=== PATIENT | male | born 1975 | race American Indian/Alaskan Native ===

== ENCOUNTER 2017-02-13 08:52 | Day surgery (SDC) | payer MEDICARE ==
[2017-02-13] MEDS ORDERED: ECOTRIN PO ONE (09:11)
[2017-02-13 09:58] LABS: Basophils % (Auto) 0.9 % (0.0-1.8); Chloride 98.6 mmol/L (98-107); Eosinophils % (Auto) 0.6 % (0.0-4.3); Hematocrit 43.2 % (35.5-45.6); Hemoglobin 14.7 gm/dl (11.8-15.2); Mean Corpuscular HGB Conc 34 % (32-34); Mean Corpuscular Hemoglobin 29 pg (28-32); Mean Corpuscular Volume 87 fl (84-94); Platelet Count 180 K/mm3 (140-440); Potassium 4.3 mmol/L (3.6-5.0); Red Cell Distribution Width 13.3 % (13.2-15.2); Sodium 139 mmol/L (137-145); White Blood Count 5.3 K/mm3 (4.5-11.0)
[2017-02-13 09:59] LABS: Anion Gap 15 mmol/L; BUN/Creatinine Ratio 11.42; Blood Urea Nitrogen 8 mg/dL (9-20); Carbon Dioxide 30 mmol/L (22-30); Glucose 228 mg/dL (75-100)
[2017-02-13] MEDS ORDERED: NACL 0.9% 500 ML 500 ML IV SCH (10:00)
[2017-02-13 10:10] LABS: INR 1.05 (0.87-1.13)
[2017-02-13] MEDS ORDERED: CALAN ONE (10:35)
[2017-02-13] MEDS ORDERED: HEPARIN/NS 5000 UNIT/500ML(CATH LAB) 1,000 ML IR ONE (10:35)
[2017-02-13] MEDS ORDERED: NITROGLYCERIN SYRINGE 3 ML ONE (10:35)
[2017-02-13] MEDS ORDERED: XYLOCAINE 2% INFILTRATI ONE (10:35)
[2017-02-13] MEDS ORDERED: HEPARIN 10,000 UNITS/10 ML ONE (10:35)
[2017-02-13] MEDS ORDERED: SUBLIMAZE ONE (10:37)
[2017-02-13] MEDS ORDERED: VERSED ONE (10:37)
[2017-02-13] MEDS ORDERED: APRESOLINE ONE (10:43)
--- NOTE | 2017-02-13 11:16 | Short Stay Summary ---
Short Stay Documentation Date of service: 02/13/17 - History H&P: obtained from office - Allergies and Medications Current Medications: Allergies No Known Allergies Allergy (Verified 03/31/13 10:08) Home Medications Medication Instructions Recorded Confirmed Last Taken Type ALPRAZolam [Xanax TAB] 1 mg PO BID 02/13/17 02/13/17 02/12/17 History Ergocalciferol [Vitamin D2] 1 cap PO QWEEK 02/13/17 02/13/17 02/12/17 History ISOSORBIDE MONOnitrate [Imdur ER] 30 mg PO DAILY #30 tab.er.24h 02/13/17 Unknown Rx Insulin Glargine,Hum.rec.anlog 35 units SQ QPM 02/13/17 02/13/17 02/12/17 History [Lantus Solostar] Insulin Lispro [HumaLOG VIAL] 5 - 11 units SQ AC 02/13/17 02/13/17 02/12/17 History Lisinopril [Zestril TAB] 10 mg PO QDAY 02/13/17 02/13/17 02/12/17 History Ranitidine HCl [Zantac 150 MG TAB] 150 mg PO PRN PRN 02/13/17 02/13/17 02/12/17 History Tizanidine HCl [Zanaflex] 4 mg PO Q8HR 02/13/17 02/13/17 02/12/17 History Active Medications Sodium Chloride (Nacl 0.9% 500 Ml) 500 mls @ 50 mls/hr IV DIRECT JENNIFER Stop: 02/13/17 19:59 Last Admin: 02/13/17 09:30 Dose: 50 mls/hr - Brief post op/procedure progress note Date of procedure: 02/13/17 Pre-op diagnosis: chest pain Post-op diagnosis: same Procedure: C - see cath report Anesthesia: local Estimated blood loss: none Condition: stable - Disposition Condition at discharge: Stable Disposition: DC-[id number] TO HOME OR SELFCARE - Discharge Diagnoses (1) Chest pain Status: Resolved Qualifiers: Chest pain type: C Ischemic chest pain type: I (2) Coronary artery vasospasm Status: Acute (3) Hypertension Status: Chronic Qualifiers: Hypertension type: H (4) Hyperlipidemia Status: Chronic Qualifiers: Hyperlipidemia type: H (5) Diabetes Status: Chronic Qualifiers: Diabetes mellitus type: D Diabetes mellitus complication status: D Diabetes mellitus complication detail: D Diabetic retinopathy severity: D Proliferative retinopathy type: P Diabetes mellitus macular edema: D Diabetes mellitus nursing home insulin use: D Laterality: L Chronic kidney disease stage: C Short Stay Discharge Plan Activity: advance as tolerated Diet: low fat, low cholesterol, low salt Wound: per your surgeon's advice Follow up with: VADIM AQUINO MD [Staff Physician] - 7 Days Prescriptions: ISOSORBIDE MONOnitrate [Imdur ER] 30 mg PO DAILY #30 tab.er.24h
--- NOTE | 2017-02-13 12:01 | Cardiac Catherization Report ---
REFERRING PHYSICIAN: Sukhjinder Montero MD INDICATION FOR PROCEDURE: The patient is a pleasant 41-year-old -[place] gentleman who presents with abnormal treadmill stress test, referred by Dr. Gomez and Dr. Montero, referred for abnormal exercise stress test only went [address] changes, referred for left heart catheterization. Other medical issues include hypertension, possible hyperthyroidism, hyperlipidemia, and type 1 diabetes. The patient is currently on OSMAN inhibition, metoprolol, blood pressure has been poorly controlled. PROCEDURE IN DETAIL: The patient was brought to the biological lab technician in a postabsorptive state, prepped and draped in sterile fashion. Sridhar's test in right hand was normal. A 2 mL of 2% lidocaine used to anesthetize the right wrist. A standard 6-[place] hydrophilic sheath was used to cannulate the right radial artery via modified Seldinger technique. All exchanges performed to exchange a J-tip guidewire. JL3.5 catheter used to engage the left main. No dampening or ventricularization. Cineangiography performed in all projections. JR4 catheter used to cross the aortic valve under fluoroscopic guidance. Left ventriculography performed in 30 [place] and 30 GREEK projections via hand injections. Catheter flushed. Manual pullback performed with continuous pressure monitoring. Catheter used to engage the right coronary. No dampening or ventricularization. Cineangiography performed in all projections. The patient had an intermediate 50-60% mid right coronary lesion. We gave 100 mcg of intracoronary nitroglycerin, this lesion resolved entirely. At this point, we end of the case and there were no complications. DATA: Aortic pressure is 140/80, LV pressure is 140. LVEP of 12 mmHg. Left ventriculography revealed normal systolic performance with estimated ejection fraction of 55-60%. No evidence of aortic stenosis. CORONARY ANATOMY: This is a right dominant system. Right coronary is a moderate-sized vessel, courses AV groove, distally bifurcates in the posterior and posterolateral branch. Initial angiography demonstrates a 50-60% stenosis in the distal right coronary. No other significant disease identified. A 100 mcg of intracoronary nitroglycerin given. This lesion resolved entirely. There is no significant disease in the right coronary. There is no significant atherosclerotic disease in the right coronary. Left main is without significant disease. It bifurcates left anterior and left circumflex. LAD is a moderate sized vessel, courses anterior intergroove, wraps around the apex, scattered luminal irregularities, but no significant disease in the LAD or diagonal system. Left circumflex is a moderate-sized vessel, courses AV groove. No significant disease in the left circumflex. CONCLUSIONS: 1. Minimal scattered luminal irregularities throughout this right dominant system. Mild vasospastic disease noted in the distal right coronary, 50-60% stenosis resolves with intracoronary nitroglycerin. No obstructive disease noted throughout the coronary tree. 2. Normal left ventricular systolic performance, estimated ejection fraction of 55-60%. 3. No evidence of aortic stenosis. At this point, we recommend adding Imdur, side effect profile discussed, and if this does not help, we would consider adding Ranexa and a calcium channel christy. We would also consider adding a statin therapy given endothelial dysfunction and vasospastic episodes. The patient will follow up with Dr. Gomez. Results of procedure explained to the patient and his son. All questions were addressed. JOB# [id number] SHAR/SUZETTE
[2017-02-13 14:13] VITALS: BP 137/84
== END 2017-02-13 13:40 | disposition home or self-care (01) ==
LOC: CATHLABREC 08:52
PROVIDERS: ATTEND Internal Medicine
DX: I20.1 Angina pectoris with documented spasm (principal); I10 Essential (primary) hypertension; F41.9 Anxiety disorder, unspecified; K21.9 Gastro-esophageal reflux disease without esophagitis; E78.2 Mixed hyperlipidemia; E10.9 Type 1 diabetes mellitus without complications; Z79.4 Long term (current) use of insulin; Z79.899 Other long term (current) drug therapy; Z82.49 Family history of ischemic heart disease and other diseases of the circulatory system
CPT/HCPCS: 36415; 80048; 82962; 85025; 85610; 85730; 93005; 93010; 93458; C1887; C1894; J0360; J1644; J2250; J3010; J7040; Q9967

== ENCOUNTER 2017-04-02 19:32 | Emergency (ER) | payer MEDICARE ==
[2017-04-02 19:43] VITALS: BP 142/101
[2017-04-02 20:03] LABS: Basophils % (Auto) 0.7 % (0.0-1.8); Eosinophils % (Auto) 0.4 % (0.0-4.3); Hematocrit 41.9 % (35.5-45.6); Hemoglobin 14.7 gm/dl (11.8-15.2); Mean Corpuscular HGB Conc 35 % (32-34); Mean Corpuscular Hemoglobin 31 pg (28-32); Mean Corpuscular Volume 87 fl (84-94); Platelet Count 219 K/mm3 (140-440); Red Cell Distribution Width 13.2 % (13.2-15.2); White Blood Count 5.9 K/mm3 (4.5-11.0)
[2017-04-02 20:22] LABS: Anion Gap 18 mmol/L; BUN/Creatinine Ratio 26; Blood Urea Nitrogen 18 mg/dL (9-20); Calcium 9.6 mg/dL (8.4-10.2); Carbon Dioxide 26 mmol/L (22-30); Chloride 91.7 mmol/L (98-107); Glucose 402 mg/dL (75-100); Potassium 4.6 mmol/L (3.6-5.0); Sodium 131 mmol/L (137-145)
[2017-04-03 00:21] LABS: Bilirubin,Urine NEG (Negative); Blood,Urine NEG (Negative); Ketones,Urine NEG (Negative); Leukocyte Esterase,Urine NEG (Negative); Mucus,Urine FEW /HPF; Nitrite,Urine NEG (Negative); Protein,Urine <15 mg/dL mg/dL (Negative); Urobilinogen,Urine < 2.0 mg/dL (<2.0); WBC,Urine < 1.0 /HPF (0.0-6.0)
== END 2017-04-02 20:48 | disposition left against medical advice (07) ==
LOC: ED 19:32
DX: I10 Essential (primary) hypertension (principal); Z53.21 Procedure and treatment not carried out due to patient leaving prior to being seen by health care provider
CPT/HCPCS: 36415; 80048; 81001; 82805; 82962; 85025